=== PATIENT | female | born 2000 | race Caucasian/White ===

== ENCOUNTER 2021-10-13 15:29 | Emergency (ER) | payer BC, MEDICAID ==
[2021-10-13] MEDS ORDERED: Ketorolac 30 MG/ML SDV IM ONE (16:11)
[2021-10-13] MEDS ORDERED: Ketorolac 30 MG/ML SDV ONE (16:24)
== END 2021-10-13 17:20 | disposition home or self-care (01) ==
LOC: LB.ED 15:29
DX: K80.50 Calculus of bile duct without cholangitis or cholecystitis without obstruction (principal)
CPT/HCPCS: 36415; 80053; 83690; 85025; 96372; 99284; J1885